=== PATIENT | male | born 1950 | race Hispanic/Latino ===

== ENCOUNTER 2025-05-15 21:51 | Emergency (ER) | payer OTHER ==
[~2025-05-15] VITALS: Ht 167.6 cm; Wt 66.2 kg
[2025-05-15 22:26] VITALS: BP 129/72; PULSE 66; RESP 16; TEMP 98; O2SAT 97
[2025-05-15] MEDS ORDERED: MUPI22OI2 TP (23:15)
[2025-05-15] MEDS ORDERED: AMOX1TAB16 PO (23:15)
--- NOTE | 2025-05-15 23:17 | ERN ---
General Chief Complaint: Animal Bite Stated Complaint: DOG BITE Time Seen by MD: 22:00 Time Seen by Midlevel: 22:00 Source: patient History of Present Illness Allergies: Coded Allergies: No Known Allergies (Unverified Allergy, Unknown, 05/15/25) Past Medical History Past Medical History: Diabetes-Type II, Hypertension Past Surgical History: None ROS Dictation CONSTITUTIONAL: Negative except for HPI HEAD/FACE: Negative except for HPI EENT: Negative except for HPI RESPIRATORY: Negative except for HPI GASTROINTESTINAL/ABDOMINAL: Negative except for HPI GENITOURINARY: Negative except for HPI MUSCULOSKELETAL: Negative except for HPI INTEGUMENTARY: Negative except for HPI NEUROLOGICAL/PSYCH: Negative except for HPI HEMATOLOGIC/LYMPHATIC: Negative except for HPI All Systems Negative, Except as noted above. 13 point review of systems assessed and all negative except for above. Physical Exam Physical Exam Dictation Vital Signs reviewed General Appearance: Alert, oriented x 3, no acute distress, well developed, nourished. Head and Face: non-traumatic. Eyes: PERRL, pink conjunctivas, eyelid no trauma, anterior chamber with arcus senilis. Ears: Pinnas intact and no signs of trauma or erythema ear canals clear and no discharge TM no erythema Nose: No discharge, no bleeding. Oropharynx: Mouth normal, tongue pink, pharynx clear,no erythema, tonsils no exudates, no abscesses noted, mucous membrane moist Neck: Supple, non-tender, no thyromegaly, no masses, no JVD, no bruits Breast:Deferred Chest:No tenderness, no crepitus, no paradoxical movement, no retractions Lungs:Clear, well-ventilated, symmetric, no rales, no wheezing, no rhonchi, no stridor, good breath sounds bilaterally Heart: Regular rate, regular rhythm, no murmur, no gallops Vascular: no peripheral edema, Abdomen: Soft, positive bowel sounds, nondistended, no guarding, nontender, no rebound, no masses no hepatomegaly, no splenomegaly, no Lanza's sign, no hernias. Rectal: Deferred Genital: Deferred Neurological: Normal speech, motor function intact, sensory function intact Musculoskeletal: Neck nontender, full range of motion, back nontender, full r emilia of motion, Extremities: nontender, full range of motion Skin: There is a 2 cm laceration to the medial aspect of the left forearm with minimal active bleeding, there are multiple skin tears to the medial and lateral aspect of the left forearm, there was one large skin tear that measures a proximally 6 cm to the lateral aspect of the left forearm with a deeper lace ration measuring 1 cm Lymphatic: Deferred MDM MDM: Differential diagnosis: Laceration, abrasion, contusion, puncture wound There are no social concerns with this patient. Prescription drug management Prescriptions will include: Augmentin, topical mupirocin Medical management and examination interpretation discussions were had by me with other qualified healthcare professionals as indicated for the patient's care. discharge ED Course Orders Procedure Category Date Status Time Tetanus,Diphtheria PHA 05/15/25 Complete Tox [Adult] (Diphther 23:00 Ceftriaxone 1g Vial PHA 05/15/25 Complete (Rocephine 1g Inj) 23:00 Current Medications Medications (Trade) Dose Ordered Sig/Luis E Route PRN Reason Start Time Stop Time Status Last Admin Dose Admin Ceftriaxone Sodium (ROCEphine 1G INJ) 1 gm ONCE ONCE IM 05/15/25 23:00 05/15/25 23:01 DC 05/15/25 22:55 Tetanus/ Diphtheria Toxoids Adsorbed (DiphthERIA-teTANUS TOXOID [ADULT]/ DECAVAC) 0.5 ml ONCE ONCE IM 05/15/25 23:00 05/15/25 23:01 DC 05/15/25 22:57 Vital Signs Date Time Temp Pulse Resp B/P (MAP) Pulse Ox O2 Delivery O2 Flow Rate FiO2 05/15/25 22:26 98.1 66 16 129/72 97 Room Air* 0 21 05/15/25 21:53 98.1 66 16 129/72 97 Room Air 0 Procedure Dictation Procedure Name: Laceration Repair Indication: Reduce risk of infection Location: 3 cm linear laceration to the left forearm Pre-Procedure Diagnosis: Laceration Post-Procedure Diagnosis: Repaired Laceration Informed consent was obtained before procedure started. PROCEDURE: The appropriate timeout was taken. The area was prepped and draped in the usual sterile fashion. Local anesthesia was achieved using 2cc of Lidocaine 1% without epinephrine. The wound was copiously irrigated. 3 3-0 Ethilon simple interrupted sutures were placed. Estimated blood loss was less than 0.5 mL. A dressing was applied to the area and anticipatory guidance, as well as standard post-procedure care, was explained. Return precautions are given. The patient tolerated the procedure well without complications. Follow-up visit set for suture removal and evaluation of the laceration. Procedure Name: Laceration Repair Indication: Reduce risk of infection Location: 1 cm linear laceration to the left forearm Pre-Procedure Diagnosis: Laceration Post-Procedure Diagnosis: Repaired Laceration Informed consent was obtained before procedure started. PROCEDURE: The appropriate timeout was taken. The area was prepped and draped in the usual sterile fashion. Local anesthesia was achieved using 1.5cc of Lidocaine 1% without epinephrine. The wound was copiously irrigated. 1 3-0 Ethilon simple interrupted sutures were placed. Estimated blood loss was less than 0.5 mL. A dressing was applied to the area and anticipatory guidance, as well as standard post-procedure care, was explained. Return precautions are given. The patient tolerated the procedure well without complications. Follow-up visit set for suture removal and evaluation of the laceration. DX & DISP Disposition: Discharge Departure Impression: Primary Impression: Laceration of left forearm Additional Impression: Dog bite of left arm Condition: Stable Scripts Amoxicillin/Potassium Clav (Amox Tr-K Clv 875-125 mg Tab) 875 Mg-125 Mg Tablet 1 EACH PO BID for 5 Days, #10 TAB 0 Refills Prov: ANUJA SAUL PAC 05/15/25 Mupirocin (Mupirocin Ointment) 2 % Oint 1 APPL TP DAILY for 5 Days, #15 GM 0 Refills apply to affected area(s) Prov: ANUJA SAUL 05/15/25 Additional Instructions: You had a total of four sutures placed today. These will need to be removed in 7-10 days. You may return to the ER follow up with your primary care doctor for suture removal. Please keep area clean and dry. Take your antibiotics as prescribed. Referrals: SELF,REFERRAL (PCP) Time of Disposition: 23:14 I have reviewed the case, and I agree with, Diagnosis and Plan I performed the substantive portion of the visit. I have reviewed and personally made and approve the management plan that is documented in the note by myself or the DAVIE. I acknowledge for responsibility for the patient's management plan. ANUJA SAUL PAC May 15, 2025 23:17
== END 2025-05-15 23:30 | disposition home or self-care (01) ==
LOC: EDH 21:51
DX: S51.812A Laceration without foreign body of left forearm, initial encounter (principal); E11.9 Type 2 diabetes mellitus without complications; I10 Essential (primary) hypertension; W54.0XXA Bitten by dog, initial encounter; Y93.89 Activity, other specified; Y92.89 Other specified places as the place of occurrence of the external cause; Y99.8 Other external cause status
CPT/HCPCS: 99284; 90714; 90471; 12002; 96372; J0696